=== PATIENT | female | born 1995 | race Caucasian/White ===

== ENCOUNTER 2018-09-23 09:01 | Observation (INO) | payer OTHER ==
[~2018-09-23] VITALS: Ht 172.7 cm; Wt 81.6 kg
== END 2018-09-23 14:25 | disposition home or self-care (01) ==
LOC: MLD 09:01 → EDBD 09:01
PROVIDERS: ADMIT Obstetrics & Gynecology; ATTEND Obstetrics & Gynecology
DX: O26.899 Other specified pregnancy related conditions, unspecified trimester (principal); R10.9 Unspecified abdominal pain; Z3A.00 Weeks of gestation of pregnancy not specified
CPT/HCPCS: 36415; 76815; 85379; 86886; 86900; 86901; G0378; Q0092

== ENCOUNTER 2019-06-12 16:17 | Emergency (ER) | payer OTHER ==
[~2019-06-12] VITALS: Ht 170.2 cm; Wt 81.6 kg
--- NOTE | 2019-06-12 16:17 | NUR ---
Patient BIBA BLS, transferred to bed 1. RN evaluating patient at bedside.
[2019-06-12 16:20] VITALS: BP 152/105
--- NOTE | 2019-06-12 16:45 | NUR ---
MEE POZO AT BEDSIDE
[2019-06-12] MEDS ORDERED: IBUPROFEN 400 MG TAB PO ONE (16:55)
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
[2019-06-12 17:40] VITALS: BP 144/96
== END 2019-06-12 17:40 | disposition home or self-care (01) ==
LOC: MED 16:17
DX: S39.012A Strain of muscle, fascia and tendon of lower back, initial encounter (principal); V49.49XA Driver injured in collision with other motor vehicles in traffic accident, initial encounter; Y93.89 Activity, other specified; Y92.410 Unspecified street and highway as the place of occurrence of the external cause; Y99.8 Other external cause status
CPT/HCPCS: 99282

== ENCOUNTER 2023-09-07 06:12 | Outpatient (CLI) | payer OTHER ==
[2023-09-07 08:20] LABS: FREE T4 (FREE THYROXINE) 1.04 ng/dL (0.76-1.46); THYROID STIMULATING HORMONE 2.74 uIU/mL (0.34-3.74)
[2023-09-08 09:07] LABS: TRIIODOTHYRONINE FREE 3.3 pg/mL (2.0-4.4); VITAMIN D, 25-HYDROXY 66.5 ng/mL (30.0-100.0)
== END 2023-09-07 20:09 | disposition home or self-care (01) ==
LOC: MLB 06:12
PROVIDERS: ATTEND Obstetrics & Gynecology
DX: Z87.59 Personal history of other complications of pregnancy, childbirth and the puerperium (principal)
CPT/HCPCS: 36415; 82306; 82607; 83036; 84439; 84443; 84481

== ENCOUNTER 2023-09-14 06:02 | Outpatient (CLI) | payer OTHER | END 2023-09-14 19:52 | disposition home or self-care (01) | LOC: MLB 06:02 | PROVIDERS: ATTEND Obstetrics & Gynecology | DX: Z87.59 Personal history of other complications of pregnancy, childbirth and the puerperium (principal) | CPT/HCPCS: 36415; 84144 ==

== ENCOUNTER 2023-11-22 06:27 | Outpatient (CLI) | payer OTHER | END 2023-11-22 20:27 | disposition home or self-care (01) | LOC: MLB 06:27 | PROVIDERS: ATTEND Internal Medicine Geriatric Medicine | DX: N97.2 Female infertility of uterine origin (principal) | CPT/HCPCS: 36415; 84144 ==

== ENCOUNTER → 2024-04-25 | Outpatient (CLI) | payer OTHER ==
[2024-04-26 09:06] LABS: ESTRADIOL SERUM 41.7 pg/mL (.); FOLLICLE STIMULATING HORMONE 6.3 mIU/mL (.); LUTEINIZING HORMONE 8.5 mIU/mL (.)
[2024-04-30 18:21] LABS: ANTI-MULLERIAN HORMONE 4.74 ng/mL
== END | disposition home or self-care (01) ==
LOC: MLB 06:25
PROVIDERS: ATTEND Specialist
DX: Z31.69 Encounter for other general counseling and advice on procreation (principal)
CPT/HCPCS: 36415; 82670; 83001; 83002; 83516

== ENCOUNTER 2024-05-05 07:10 | Outpatient (CLI) | payer OTHER ==
[2024-05-06 08:12] LABS: ESTRADIOL SERUM 91.3 pg/mL (.); FOLLICLE STIMULATING HORMONE 6.6 mIU/mL (.); LUTEINIZING HORMONE 11.8 mIU/mL (.)
== END 2024-05-05 22:29 | disposition home or self-care (01) ==
LOC: MLB 07:10
PROVIDERS: ATTEND Specialist
DX: Z31.69 Encounter for other general counseling and advice on procreation (principal)
CPT/HCPCS: 36415; 82670; 83001; 83002